=== PATIENT | female | born 1995 | race Caucasian/White ===

== ENCOUNTER 2017-09-05 19:31 | Emergency (ER) | payer MEDICAID, SELFPAY ==
[2017-09-05 19:34] VITALS: BP 116/58; PULSE 64; RESP 18; TEMP 36.9; O2SAT 100; BMI 21.0
--- NOTE | 2017-09-05 19:48 | CT_ITS ---
CT head/brain wo con HISTORY: Headache, seizure, contusion of the head/abrasion following injury after seizure ITS.REASON: seizure/fall ORDERING PHYSICIAN: Oliver Retana MD PATIENT AGE: 22 years COMPARISON: None TECHNIQUE: Axial images obtained without contrast. Brain and bone windows reviewed. FINDINGS: No midline shift, mass effect, intracranial hemorrhage, hydrocephalus, or extra-axial fluid collection is evident. The calvarium has an unremarkable appearance. No mastoid effusion. No sinus air-fluid levels.. IMPRESSION: Negative CT head without contrast. No acute finding.
[2017-09-05 20:04] LABS: Urine Pregnancy, HCG Qual. Negative (Negative)
[2017-09-05 20:18] LABS: Basophils # 0.1 K/mm3 (0-0.2); Basophils % 0.5 % (0.1-2.0); Eosinophils # 0.1 K/mm3 (0.0-0.4); Eosinophils % 1.2 % (0.1-12.0); Hematocrit 44.7 % (37.0-47.0); Hemoglobin 14.2 g/dL (12.2-16.2); Lymphocytes # 2.8 K/mm3 (0.7-4.5); Lymphocytes % 29.2 K/mm3 (10-50); Mean Corpuscular HGB Conc 31.8 g/dL (31.8-35.4); Mean Corpuscular Volume 81.6 fl (81-99); Mean Platelet Volume 7.1 fl (7.4-10.4); Monocytes # 0.5 K/mm3 (0.1-1.0); Platelet Count 276 K/mm3 (142-424); Red Blood Count 5.48 M/mm3 (4.20-5.40); Red Cell Distribution Width 14.5 % (11.5-17.5); White Blood Count 9.4 K/mm3 (4.5-13.0)
[2017-09-05 20:30] LABS: Alanine Aminotransferase 20 U/L (12-78); Albumin Level 4.3 gm/dL (3.4-5.0); Albumin/Globulin Ratio 1.3 (1.1-1.8); Alkaline Phosphatase 53 U/L (46-116); Anion Gap 13.5 mEq/L (5-15); Aspartate Amino Transferase 16 U/L (15-37); Bilirubin,Total 0.9 mg/dL (0.2-1.0); Blood Urea Nitrogen 10 mg/dL (7-18); Calcium 9.2 mg/dL (8.5-10.1); Carbon Dioxide 27 mmol/L (21.0-32.0); Chloride 105 mmol/L (98-107); Creatinine Clearance Estimated 125 mL/min (0-300); Creatinine,Serum 0.59 mg/dL (0.55-1.02); Estimated Glomerular Filt Rate 130 ml/min (>60); GFR (African American) 157 ML/MIN (>60); Globulin 3.2 gm/dl (1.3-3.2); Glucose 89 mg/dL (74-106); Potassium 3.5 mmoL/L (3.5-5.1); Sodium 142 mmol/L (136-145); Total Protein,Serum 7.5 gm/dL (6.4-8.2)
--- NOTE | 2017-09-05 21:08 | HMH.EDHA ---
ED Disposition Clinical Impression: Headache Qualifiers: Headache type: unspecified Headache chronicity pattern: acute headache Intractability: not intractable Qualified Code(s): R51 - Headache Disposition: Home, Self-Care Condition on Discharge: Good Instructions: DI for Headache Additional Instructions: see Referrals: Provider,Referral, [Primary Care Provider] - - Critical Care Critical Care Time: No Attestation: On 09/05/17, the high probability of a clinically significant, sudden or life threatening deterioration of the following system(s) required my full and direct attention, intervention and personal management. The time I documented below is in addition to time spent performing reported procedures but includes the following listed in this critical care notation. Medical Decision Making - Medical Records Medical records reviewed: Yes: I reviewed the patient's medical records. Vital Signs: 09/05/17 19:34 Temperature 98.5 F Temperature Source Temporal Artery Scan Pulse Rate [Right Radial] 64 Respiratory Rate 18 Blood Pressure [Right Arm] 116/58 Blood Pressure Mean [Right Arm] 77 02 Sat by Pulse Oximetry 100 Oxygen Delivery Method Room Air - Lab Data Lab results reviewed: Yes: I reviewed the patient's lab results. Lab Results 09/05/17 20:00: Urine HCG, Qual Negative 09/05/17 20:10: WBC 9.4, RBC 5.48 H, Hgb 14.2, Hct 44.7, MCV 81.6, MCH 26.0 L, MCHC 31.8, RDW 14.5, Plt Count 276, MPV 7.1 L, Neut % (Auto) 64.0, Lymph % (Auto) 29.2, [place] % (Auto) 5.0, Eos % (Auto) 1.2, Baso % (Auto) 0.5, Neut # (Auto) 6.0, Lymph # (Auto) 2.8, [place] # (Auto) 0.5, Eos # (Auto) 0.1, Baso # (Auto) 0.1 09/05/17 20:10: Sodium 142, Potassium 3.5, Chloride 105, Carbon Dioxide 27, Anion Gap 13.5, BUN 10, Creatinine 0.59, Estimated Creat Clear 125, Estimated GFR 130, Est GFR ( Amer) 157, Glucose 89, Calcium 9.2, Total Bilirubin 0.9, AST 16, ALT 20, Alkaline Phosphatase 53, Total Protein 7.5, Albumin 4.3, Globulin 3.2, Albumin/Globulin Ratio 1.3 Result diagrams: 09/05/17 20:10 09/05/17 20:10 Orders (Tests/Meds): ORDERS Category Date Time Status CT head/brain wo con Stat Cat Scan 09/05/17 19:48 Taken UA [Urinalysis and Microscopic] Stat Lab 09/05/17 19:56 Ordered - CT Data CT Scan: Head Time Received: 21:[address] Reviewed: Yes: I have viewed the radiologist's interpretation Preliminary Findings: Normal/NAD - Adeel Inquiry Pt receiving controlled substance: No Headache HPI - General Chief Complaint: Seizure Stated Complaint: seizure Time Seen by Provider: 09/05/17 21:08 Mode of Arrival: EMS Source of Information: Patient, Significant Other, EMS, Medical Record Limitations: No Limitations - History of Present Illness HPI Narrative: pt with daily roman over the last 2 months with no aura or neuro sx and no hx of sz - she had roman tonight and was lightheaded and had what sds like episode of vasovagaL MD Complaint: headache Onset (ago): hour(s) Onset description: now resolved Location: diffuse Severity: similar to previous episodes Quality: intermittent, similar to previous headaches Relieving factors: nothing Exacerbating factors: none Context: occurred at rest - Related Data Home Medications Medication Instructions Recorded Confirmed No Known Home Medications [No 09/05/17 09/05/17 Known Home Medications] Allergies Allergy/AdvReac Type Severity Reaction Status Date / Time No Known Allergies Allergy Verified 09/05/17 19:46 [facility] History I have reviewed the patient's past medical history: Yes Laterality Cases: Bilateral: Tonsillectomy - *Social History Smoking Status: Current every day smoker Tobacco Type: cigarettes Alcohol Intake: current Alcohol Intake Frequency:: a few times a month - Psychiatric History Expresses thoughts of harming self/others: None Suicide Plan Description: No Plan ROS Obtained: Yes All systems reviewed & no maury
--- NOTE | 2017-09-05 21:11 | ED_ITS ---
ED Disposition Clinical Impression: Headache Qualifiers: Headache type: unspecified Headache chronicity pattern: acute headache Intractability: not intractable Qualified Code(s): R51 - Headache Disposition: Home, Self-Care Condition on Discharge: Good Instructions: DI for Headache Additional Instructions: see Referrals: Provider,Referral, [Primary Care Provider] - - Critical Care Critical Care Time: No Attestation: On 09/05/17, the high probability of a clinically significant, sudden or life threatening deterioration of the following system(s) required my full and direct attention, intervention and personal management. The time I documented below is in addition to time spent performing reported procedures but includes the following listed in this critical care notation. Medical Decision Making - Medical Records Medical records reviewed: Yes: I reviewed the patient's medical records. Vital Signs: 09/05/17 19:34 Temperature 98.5 F Temperature Source Temporal Artery Scan Pulse Rate [Right Radial] 64 Respiratory Rate 18 Blood Pressure [Right Arm] 116/58 Blood Pressure Mean [Right Arm] 77 02 Sat by Pulse Oximetry 100 Oxygen Delivery Method Room Air - Lab Data Lab results reviewed: Yes: I reviewed the patient's lab results. Lab Results 09/05/17 20:00: Urine HCG, Qual Negative 09/05/17 20:10: WBC 9.4, RBC 5.48 H, Hgb 14.2, Hct 44.7, MCV 81.6, MCH 26.0 L, MCHC 31.8, RDW 14.5, Plt Count 276, MPV 7.1 L, Neut % (Auto) 64.0, Lymph % (Auto ) 29.2, [place] % (Auto) 5.0, Eos % (Auto) 1.2, Baso % (Auto) 0.5, Neut # (Auto) 6.0, Lymph # (Auto) 2.8, [place] # (Auto) 0.5, Eos # (Auto) 0.1, Baso # (Auto) 0.1 09/05/17 20:10: Sodium 142, Potassium 3.5, Chloride 105, Carbon Dioxide 27, Anion Gap 13.5, BUN 10, Creatinine 0.59, Estimated Creat Clear 125, Estimated GFR 130, Est GFR ( Amer) 157, Glucose 89, Calcium 9.2, Total Bilirubin 0.9, AST 16, ALT 20, Alkaline Phosphatase 53, Total Protein 7.5, Albumin 4.3, Globulin 3.2, Albumin/Globulin Ratio 1.3 Result diagrams: 09/05/17 20:10 09/05/17 20:10 Orders (Tests/Meds): ORDERS Category Date Time Status CT head/brain wo con Stat Cat Scan 09/05/17 19:48 Taken UA [Urinalysis and Microscopic] Stat Lab 09/05/17 19:56 Ordered - CT Data CT Scan: Head Time Received: 21:[address] Reviewed: Yes: I have viewed the radiologist's interpretation Preliminary Findings: Normal/NAD - Adeel Inquiry Pt receiving controlled substance: No Headache HPI - General Chief Complaint: Seizure Stated Complaint: seizure Time Seen by Provider: 09/05/17 21:08 Mode of Arrival: EMS Source of Information: Patient, Significant Other, EMS, Medical Record Limitations: No Limitations - History of Present Illness HPI Narrative: pt with daily roman over the last 2 months with no aura or neuro sx and no hx of sz - she had roman tonight and was lightheaded and had what sds like episode of vasovagaL MD Complaint: headache Onset (ago): hour(s) Onset description: now resolved Location: diffuse Severity: similar to previous episodes Quality: intermittent, similar to previous headaches Relieving factors: nothing Exacerbating factors: none Context: occurred at rest - Related Data Home Medications Medication Instructions Recorded Confirmed No Known Home Medications [No 09/05/1709/05
[2017-09-05 21:28] VITALS: BP 116/72; PULSE 70; RESP 18; TEMP 36.9; O2SAT 100
[2017-09-05 23:19] LABS: Microscopic, Urine URINE MICROSCOPIC (MICROSCOPIC)
[2017-09-05 23:29] LABS: Appearance,Urine SL CLOUDY (Clear); Bilirubin,Urine Negative (Negative); Blood, Urine Negative (Negative); Color,Urine YELLOW (Yellow); Glucose,Urine (UA) Negative (Negative); Ketones,Urine 1+ (Negative); Leukocyte Esterase,Urine Negative (Negative); Nitrate,Urine Negative (Negative); PH,Urine 8.5 (5.0-8.5); Protein,Urine Negative (Negative); Specific Gravity, Urine 1.015 (1.005-1.030)
[2017-09-05 23:48] LABS: Amorphous Sediment,Urine 2+ /lpf; Bacteria,Urine 4+ /lpf; RBC,Urine Occasional #/hpf (0-3)
== END 2017-09-05 21:28 | disposition home or self-care (01) ==
PROVIDERS: Emergency Medicine; Emergency Provider Emergency Medicine
DX: R51 Headache (principal); R56.9 Unspecified convulsions
CPT/HCPCS: 70450; 80053; 81001; 81025; 85025; 87086; 87088; 87186; 99281

== ENCOUNTER 2017-10-28 14:20 | Emergency (ER) | payer MEDICAID, SELFPAY ==
[2017-10-28 14:33] VITALS: BP 111/68; PULSE 75; RESP 18; TEMP 37.6; O2SAT 98; BMI 21.9
--- NOTE | 2017-10-28 14:40 | HMH.EDUTC ---
[facility] [place] [facility] [place] Clinical Impression: UTI (urinary tract infection) Qualifiers: Urinary tract infection type: acute cystitis Hematuria presence: without hematuria Qualified Code(s): N30.00 - Acute cystitis without hematuria Disposition: Home, Self-Care Condition on Discharge: Good Instructions: DI for Urinary Tract Infection (UTI) Prescriptions: Ciprofloxacin HCl [Ciprofloxacin 500mg Tab] 500 mg PO BID 5 Days #10 tab Referrals: Provider,Jerome, [Primary Care Provider] - Lauryn Laboy MD [[place] Provider] - Andrews Mcintosh MD [Staff Physician] - Time of Disposition: 14:52 Medical Decision Making - Adeel Inquiry Pt receiving controlled substance: No Vital Signs: 10/28/17 14:33 Temperature 99.6 F Temperature Source Oral Pulse Rate [Right Radial] 75 Respiratory Rate 18 Blood Pressure [Right Arm] 111/68 Blood Pressure Mean [Right Arm] 82 02 Sat by Pulse Oximetry 98 Oxygen Delivery Method Room Air - Lab Data Lab results reviewed: Yes: I reviewed the patient's lab results. [facility] [place] [facility] [place]PI - General Stated complaint: pelvic pain Time Seen by Provider: 10/28/17 14:41 Mode of Arrival: Family Vehicle Source of Information: Patient Limitations: No Limitations Description of Symptoms (Recalled from Triage Doc. by RN): PT C/O PELVIC PAIN FOR A MONTH THAT COMES IN SPURTS. HEENT Symptoms (Recalled from RN notes): No Resp Symptoms (Recalled from RN notes): No Skin Symptoms (Recalled from RN notes): No MS Symptoms (Recalled from RN notes): No Functional Status (Recalled from RN notes): NA - History of Present Illness Provider Complaint: Pelvic pain X 1 month. No hematuria. No discharge. Some low back pain and dysuria. History of UTIs. Onset (ago): month(s) (1) Location: genitals Radiation: non-radiation Quality: burning, aching Treatments prior to arrival: none - Related Data Previous Rx's Medication Instructions Recorded Ciprofloxacin HCl [Ciprofloxacin 500 mg PO BID 5 Days #10 tab 10/28/17 500mg Tab] Allergies Allergy/AdvReac Type Severity Reaction Status Date / Time No Known Allergies Allergy Verified 09/05/17 19:46 - Worker's Comp Is this a Worker's Comp case?: No [facility] History I have reviewed the patient's past medical history: Yes Medical History: Denies:: Cancer, Diabetes Mellitus Type 1, Diabetes Mellitus Type 2, MRSA Laterality Cases: Bilateral: Tonsillectomy Amputation: No Fractures: No - Social History Smoking Status: Current every day smoker Tobacco Type: cigarettes Alcohol Intake: never Alcohol Intake Frequency:: a few times a month - Psychiatric History Expresses thoughts of harming self/others: None Suicide Plan Description: No Plan ROS Obtained: Yes All systems reviewed & no additional complaints - Genitourinary Female Genitourinary: Reports dysuria, Reports pelvic pain Physical Exam - General General appearance: alert, in no apparent distress - Head Head exam: atraumatic, normocephalic, normal inspection - Eye Eye exam: Present: normal appearance, PERRL, EOMI - ENT ENT exam: Present: normal exam, normal oropharynx, mucous membranes moist, TM's normal bilaterally, normal external ear exam - Neck Neck exam: Present: normal inspection, full ROM, trachea midline. Absent: meningismus, lymphadenopathy - Chest Chest inspection: Present: normal inspection, symmetric chest wall rise. Absent: tenderness - Respiratory Respiratory exam: Present: normal lung sounds bilaterally. Absent: respiratory distress - Cardiovascular Cardiovascular exam: Present: regular rate, normal rhythm. Absent: JVD - Abdominal Exam Abdominal exam: Present: soft, normal bowel sounds. Absent: distention, tenderness, guarding - Extremities Exam Extremities exam: Present: normal inspection, full ROM, normal capillary refill. Absent: calf tenderness - Back Exam Back exam: Present: normal inspection. Absent: tenderness - Neurological Exam Neurological exam: P
[2017-10-28 14:44] LABS: Apearance,Urine Cloudy (Clear); Color,Urine Yellow (Yellow)
[2017-10-28 14:45] LABS: Bilirubin,Urine Negative (Negative); Blood, Urine Negative (Negative); Glucose,Urine (UA) Negative (Negative); Ketones,Urine TRACE (Negative); Protein,Urine Negative (Negative); Specific Gravity, Urine 1.025 (1.005-1.030); UTC Leukocyte Esterase,Urine 1+ (Negative); UTC Nitrate,Urine Positive (Negative); UTC Pregnancy Test, Urine Negative (Negative); Urobilinogen,Urine 0.2 EU/dl (0.2)
--- NOTE | 2017-10-28 14:49 | ED_ITS ---
[facility] – [place] Disposition Clinical Impression: UTI (urinary tract infection) Qualifiers: Urinary tract infection type: acute cystitis Hematuria presence: without hematuria Qualified Code(s): N30.00 - Acute cystitis without hematuria Disposition: Home, Self-Care Condition on Discharge: Good Instructions: DI for Urinary Tract Infection (UTI) Prescriptions: Ciprofloxacin HCl [Ciprofloxacin 500mg Tab] 500 mg PO BID 5 Days #10 tab Referrals: Provider,eJrome, [Primary Care Provider] - Lauryn Laboy MD [[place] Provider] - Andrews Mcintosh MD [Staff Physician] - Time of Disposition: 14:52 Medical Decision Making - Adeel Inquiry Pt receiving controlled substance: No Vital Signs: 10/28/17 14:33 Temperature 99.6 F Temperature Source Oral Pulse Rate [Right Radial] 75 Respiratory Rate 18 Blood Pressure [Right Arm] 111/68 Blood Pressure Mean [Right Arm] 82 02 Sat by Pulse Oximetry 98 Oxygen Delivery Method Room Air - Lab Data Lab results reviewed: Yes: I reviewed the patient's lab results. [facility] [place] HPI - General Stated complaint: pelvic pain Time Seen by Provider: 10/28/17 14:41 Mode of Arrival: Family Vehicle Source of Information: Patient Limitations: No Limitations Description of Symptoms (Recalled from Triage Doc. by RN): PT C/O PELVIC PAIN FOR A MONTH THAT COMES IN SPURTS. HEENT Symptoms (Recalled from RN notes): No Resp Symptoms (Recalled from RN notes): No Skin Symptoms (Recalled from RN notes): No MS Symptoms (Recalled from RN notes): No Functional Status (Recalled from RN notes): NA - History of Present Illness Provider Complaint: Pelvic pain X 1 month. No hematuria. No discharge. Some low back pain and dysuria. History of UTIs. Onset (ago): month(s) (1) Location: genitals Radiation: non-radiation Quality: burning, aching Treatments prior to arrival: none - Related Data Previous Rx's Medication Instructions Recorded Ciprofloxacin HCl [Ciprofloxacin 500 mg PO BID 5 Days #10 tab 10/28/17 500mg Tab] Allergies Allergy/AdvReac Type Severity Reaction Status Date / Time No Known Allergies Allergy Verified 09/05/17 19:46 - Worker's Comp Is this a Worker's Comp case?: No [facility] History I have reviewed the patient's past medical history: Yes Medical History: Denies:: Cancer, Diabetes Mellitus Type 1, Diabetes Mellitus Type 2, MRSA Laterality Cases: Bilateral: Tonsillectomy Amputation: No Fractures: No - Social History Smoking Status: Current every day smoker Tobacco Type: cigarettes Alcohol Intake: never Alcohol Intake Frequency:: a few times a month - Psychiatric History Expresses thoughts of harming self/others: None Suicide Plan Description: No Plan ROS Obtained: Yes All systems reviewed & no additional complaints - Genitourinary Female Genitourinary: Reports dysuria, Reports pelvic pain Physical Exam - General General appearance: alert, in no apparent distress - Head Head exam: atraumatic, normocephalic, normal inspection - Eye Eye exam: Present: normal appearance, PERRL, EOMI - ENT ENT exam: Present: normal exam, normal oropharynx, mucous membranes moist, TM's normal bilaterally, normal external ear exam - Neck Neck exam: Present: normal inspection, full ROM, trachea midline. Absent: meningismus, lymphadenopathy - Chest Chest in
[2017-10-28 14:55] VITALS: BP 115/72; PULSE 79; RESP 16; TEMP 37.4; O2SAT 99
== END 2017-10-28 14:56 | disposition home or self-care (01) ==
PROVIDERS: Emergency Provider Physician Assistant
DX: N30.00 Acute cystitis without hematuria (principal); F17.210 Nicotine dependence, cigarettes, uncomplicated
CPT/HCPCS: 81003; 81025; 87086; 87088; 87186; 99201

== ENCOUNTER → 2017-12-19 16:19 | Outpatient (CLI) | payer MEDICAID, SELFPAY | PROVIDERS: Visit Provider Obstetrics & Gynecology | DX: O20.0 Threatened abortion (principal) | CPT/HCPCS: 36415; 84702 ==

== ENCOUNTER 2020-05-28 10:22 | Emergency (ER) | payer MEDICAID, SELFPAY ==
[2020-05-28 10:24] VITALS: BP 122/74; PULSE 90; RESP 17; TEMP 37.1; O2SAT 96; BMI 22.8
--- NOTE | 2020-05-28 10:41 | PC.NURSE ---
Denies being able to urinate or have a BM at this time
--- NOTE | 2020-05-28 10:58 | HMH.EDGENADL ---
ED Disposition Clinical Impression: Nausea vomiting and diarrhea, Blood in stool Disposition: Home, Self-Care Condition on Discharge: Good Instructions: Diarrhea, DI for Vomiting -- Adult Additional Instructions: Follow-up with your primary care provider within 2 to 3 days for reevaluation. Return to the emergency department for any acute new concerns or worsening symptoms. - Critical Care Critical Care Time: No Attestation: On 05/28/20, the high probability of a clinically significant, sudden or life threatening deterioration of the following system(s) required my full and direct attention, intervention and personal management. The time I documented below is in addition to time spent performing reported procedures but includes the following listed in this critical care notation. Medical Decision Making - Medical Records Medical records reviewed: Yes: I reviewed the patient's medical records. - Adeel Inquiry Pt receiving controlled substance: No Vital Signs: 05/28/20 10:24 Temperature 98.8 F Temperature Source Oral Pulse Rate [Left Radial] 90 Respiratory Rate 17 Blood Pressure [Right Arm] 122/74 Blood Pressure Mean [Right Arm] 90 Blood Pressure Source [Right Arm] Automatic Cuff Blood Pressure Position [Right Arm] Sitting 02 Sat by Pulse Oximetry 96 Oxygen Delivery Method Room Air - Lab Data Lab results reviewed: Yes: I reviewed the patient's lab results. Lab Results 05/28/20 11:00: WBC 6.7, RBC 5.53 H, Hgb 13.7, Hct 42.0, MCV 75.8 L, MCH 24.8 L, MCHC 32.8, RDW 15.1, Plt Count 291, MPV 7.2 L, Neut % (Auto) 54.5, Lymph % (Auto) 37.0, [place] % (Auto) 5.4, Eos % (Auto) 2.0, Baso % (Auto) 1.1, Neut # (Auto) 3.7, Lymph # (Auto) 2.5, [place] # (Auto) 0.4, Eos # (Auto) 0.1, Baso # (Auto) 0.1 05/28/20 11:00: Sodium 138, Potassium 4.0, Chloride 101, Carbon Dioxide 28, Anion Gap 13.0, BUN 6 L, Creatinine 0.60, Estimated Creat Clear 131, Estimated GFR 124, Est GFR ( Amer) 150, Glucose 90, Calcium 9.5, Total Bilirubin 0.6, AST 28, ALT 11 L, Alkaline Phosphatase 61, Total Protein 8.0, Albumin 4.9, Globulin 3.1, Albumin/Globulin Ratio 1.6 05/28/20 11:00: Lipase 47 05/28/20 11:40: Lactate 0.8 05/28/20 11:45: Urine Color Yellow, Urine Appearance Clear, Urine pH 8.5, Ur Specific [place] 1.020, Urine Protein Negative, Urine Glucose (UA) Negative, Urine Ketones Negative, Urine Blood Negative, Urine Nitrate Negative, Urine Bilirubin Negative, Urine Urobilinogen 0.2, Ur Leukocyte Esterase Negative, Urine RBC Occasional, Urine WBC Occasional, Ur Squamous Epith Cells 10-20, Amorphous Sediment 2+, Urine Bacteria None Result diagrams: 05/28/20 11:00 05/28/20 11:00 Orders (Tests/Meds): ORDERS Category Date Time Status Diarrhea 6-11 Panel, Cdiff PCR Stat Lab 05/28/20 10:43 Ordered Medical Decision Narrative: Over the nontender abdomen and labs that are reassuring with no significant leukocytosis, anemia, significant metabolic derangement. She only has 1 bowel movement while here, did states that there was blood in it, but neglected to get us a sample. She has not had any vomiting here. Suspect viral syndrome, but IBS/inflammatory bowel disease is a possibility. I have recommended follow-up with primary care provider within the next 2 to 3 days for reevaluation. General Adult HPI - General Chief complaint: Nausea/Vomiting/Diarrhea Stated complaint: blood in bowels, vomiting Time Seen by Provider: 05/28/20 10:58 Mode of Arrival: Ambulatory Limitations: No Limitations Description of Symptoms (Recalled from ER Triage Doc. by RN): c/o rectal bleeding for 2 days with diarrhea, abdomen pain, vomited once this and feels dizzy at times - History of Present Illness HPI narrative: This is a 25-year-old female with no significant past medical history who presents to the emergency department for bright red bloody loose stool this morning associated with one episode of vomiting. She has had crampy abdominal pain all week. No
[2020-05-28 11:05] LABS: Basophils # 0.1 K/mm3 (0-0.2); Basophils % 1.1 % (0.1-2.0); Eosinophils # 0.1 K/mm3 (0.0-0.4); Hemoglobin 13.7 g/dL (12.2-16.2); Lymphocytes # 2.5 K/mm3 (0.7-4.5); Mean Corpuscular HGB Conc 32.8 g/dL (31.8-35.4); Mean Corpuscular Hemoglobin 24.8 pg (27.0-31.2); Mean Corpuscular Volume 75.8 fl (81-99); Mean Platelet Volume 7.2 fl (7.4-10.4); Monocytes # 0.4 K/mm3 (0.1-1.0); Monocytes % 5.4 % (1.7-9.3); Neutrophils # 3.7 K/mm3 (1.8-7.8); Neutrophils % 54.5 % (37.0-80.0); Platelet Count 291 K/mm3 (142-424); Red Blood Count 5.53 M/mm3 (4.20-5.40); Red Cell Distribution Width 15.1 % (11.5-17.5); White Blood Count 6.7 K/mm3 (4.8-10.8)
[2020-05-28 11:18] LABS: Chloride 101 mmol/L (98-107); Sodium 138 mmol/L (136-145)
[2020-05-28 11:20] LABS: Alanine Aminotransferase 11 U/L (12-78); Aspartate Amino Transferase 28 U/L (14-36); Blood Urea Nitrogen 6 mg/dl (7-17); Creatinine Clearance Estimated 131 mL/min (50-200); Estimated Glomerular Filt Rate 124 ml/min (>60); GFR (African American) 150 ML/MIN (>60); Lipase 47 U/L (23-300)
[2020-05-28 11:21] LABS: Albumin Level 4.9 g/dl (3.5-5.0); Albumin/Globulin Ratio 1.6 (1.1-1.8); Alkaline Phosphatase 61 U/L (38-126); Bilirubin,Total 0.6 mg/dl (0.2-1.3); Calcium 9.5 mg/dl (8.4-10.2); Carbon Dioxide 28 mmol/L (22.0-30.0); Globulin 3.1 g/dL (1.3-3.2); Glucose 90 mg/dl (74-100)
[2020-05-28 11:49] LABS: Microscopic, Urine URINE MICROSCOPIC (MICROSCOPIC)
[2020-05-28 11:50] LABS: Appearance,Urine CLEAR (Clear); Bilirubin,Urine Negative (Negative); Blood, Urine Negative (Negative); Color,Urine YELLOW (Yellow); Glucose,Urine (UA) Negative (Negative); Ketones,Urine Negative (Negative); Leukocyte Esterase,Urine Negative (Negative); Nitrate,Urine Negative (Negative); PH,Urine 8.5 (5.0-8.5); Protein,Urine Negative (Negative); Urobilinogen,Urine 0.2 EU/dl (0.2)
[2020-05-28 11:55] LABS: Lactic Acid 0.8 mmol/L (0.7-2.1)
[2020-05-28 11:59] LABS: Amorphous Sediment,Urine 2+ /lpf; RBC,Urine Occasional #/hpf (0-3); WBC,Urine Occasional #/hpf (0-3)
[2020-05-28 12:20] VITALS: BP 138/75; PULSE 61; RESP 18; TEMP 37.1; O2SAT 98
== END 2020-05-28 12:21 | disposition home or self-care (01) ==
PROVIDERS: Emergency Provider Emergency Medicine; PCP Pediatrics
DX: R11.2 Nausea with vomiting, unspecified (principal); R19.7 Diarrhea, unspecified; F41.8 Other specified anxiety disorders
CPT/HCPCS: 80053; 81001; 83605; 83690; 85025; 99282

== ENCOUNTER 2020-07-23 11:55 | Emergency (ER) | payer MEDICAID, SELFPAY ==
[2020-07-23 12:05] VITALS: BP 142/76; PULSE 87; RESP 20; TEMP 36.6; O2SAT 99; BMI 22.8
[2020-07-23 12:20] VITALS: BP 130/78; BP 131/78; PULSE 101; PULSE 124
--- NOTE | 2020-07-23 12:37 | HMH.EDUTC ---
[facility] [place]: Orthostatic hypotension Disposition: Home, Self-Care Condition on Discharge: Good Instructions: Orthostatic Hypotension, DI for Orthostatic Hypotension Additional Instructions: Drink plenty of fluids. You need to drink at least 2 liters (2 quarts) of water per day. That's about eight 8 ounce glasses of water per day. Follow up with your regular doctor. GO TO THE ER FOR ANY WORSENING SYMPTOMS Referrals: PCP,No [Primary Care Provider] - Time of Disposition: 14:06 Medical Decision Making - Medical Records Medical records reviewed: No: I reviewed the patient's medical records. - Adeel Inquiry Pt receiving controlled substance: No Vital Signs: 07/23/20 12:05 07/23/20 12:20 07/23/20 14:08 Temperature 97.8 F 97.8 F Temperature Source Oral Pulse Rate 101 H Pulse Rate [Orthostatic Sitting Left Brachial] 101 H Pulse Rate [Orthostatic Standing Left Brachial] 124 H Pulse Rate [Right Brachial] 87 Respiratory Rate 20 20 Blood Pressure 130/78 Blood Pressure [Orthostatic Sitting Left Arm] 131/78 Blood Pressure [Orthostatic Standing Left Arm] 130/78 Blood Pressure [Right Arm] 142/76 H Blood Pressure Mean [Right Arm] 98 Blood Pressure Source [Right Arm] Automatic Cuff Blood Pressure Position [Right Arm] Sitting 02 Sat by Pulse Oximetry 99 Oxygen Delivery Method Room Air Orders (Tests/Meds): ED MEDICATIONS Discontinued Medications Generic Name Dose Route Start Last Admin Trade Name Freq PRN Reason Stop Dose Admin Sodium Chloride 1,000 mls @ 999 mls/hr 07/23/20 13:00 07/23/20 13:00 Sod Chlor 0.9% 1000ml Bag IV 07/23/20 14:00 999 mls/hr .[id number] NANCY Administration Medical Decision Narrative: Her heart rate went up some with her orthostatic vitals. In the past she has had trouble with not drinking enough fluids and getting dehydrated. 1 liter of ns was given iv. Afterwards she stated that she felt better. [facility] [place] - General Stated complaint: dizzy, rapid heart rate, nausea Time Seen by Provider: 07/23/20 12:37 Mode of Arrival: Ambulatory Source of Information: Patient Limitations: No Limitations Description of Symptoms (Recalled from Triage Doc. by RN): PATIENT C/O DIZZINESS SINCE THIS MORNING. SHE STATES EVERY TIME SHE STANDS UP SHE FEELS DIZZY AND FAINT AND FEELS LIKE HER HEARTRATE INCREASES. DENIES ANY RECENT ILLNESS OR ANY OTHER SYMPTOMS HEENT Symptoms (Recalled from RN notes): No Resp Symptoms (Recalled from RN notes): No Skin Symptoms (Recalled from RN notes): No MS Symptoms (Recalled from RN notes): No Functional Status (Recalled from RN notes): WNL - History of Present Illness Provider Complaint: She c/o dizziness since this morning. She states that when she stands up she feels like she is going to pass out. She denies any recent sickeness or feeling bad. She denies any cough or congestion. She has been dehydrated in the past and she felt like this. She denies n/v/d. - Related Data Allergies Allergy/AdvReac Type Severity Reaction Status Date / Time No Known Allergies Allergy Verified 02/01/18 16:44 - Worker's Comp Is this a Worker's Comp case?: No [facility] History - Hepatitis A Screen Drug use history?: No High risk sexual behaviors?: No History of sexually transmitted infection?: No Currently employed?: No Childcare worker?: No Do you have indoor plumbing?: Yes Do you have electricity?: Yes Attestation statement:: This patient has been screened for Hepatitis A risk factors. I have reviewed the patient's past medical history: Yes Medical History: Reports:: Anxiety, Depression, Seizures Denies:: Cancer, Diabetes Mellitus Type 1, Diabetes Mellitus Type 2, Migraine, MRSA Comment: Bipolar Laterality Cases: Bilateral: Tonsillectomy Amputation: No Fractures: No Comment: wisdom teeth - Social History Smoking Status: Never smoker Tobacco Type: cigarettes Alcohol Intake: never Alcohol Intake Fr
--- NOTE | 2020-07-23 12:44 | ECG_ITS ---
APPROVED REPORT Exam: Resting ECG HR:86 bpm ECG Measurements Heart Rate 86 AXES UT 142 P 42 QRSd 74 QRS 69 QT 386 T 50 QTc 461 Conclusion Normal sinus rhythm Normal ECG Electronically signed by : Pb Ordonez, 07/23/2020 19:13:01
[2020-07-23 14:08] VITALS: BP 130/78; PULSE 101; RESP 20; TEMP 36.6; O2SAT 99
[2020-07-23 19:13] LABS: Apearance,Urine Clear (Clear); Bilirubin,Urine Negative (Negative); Blood, Urine Negative (Negative); Color,Urine Yellow (Yellow); Glucose,Urine (UA) Negative (Negative); Ketones,Urine Negative (Negative); Protein,Urine Negative (Negative); UTC Leukocyte Esterase,Urine Negative (Negative); UTC Nitrate,Urine Negative (Negative); Urobilinogen,Urine 0.2 EU/dl (0.2)
[2020-07-25 06:12] LABS: POC Glucose,Bedside 113 (70-110)
== END 2020-07-23 14:13 | disposition home or self-care (01) ==
PROVIDERS: Emergency Provider Nurse Practitioner Family
DX: I95.1 Orthostatic hypotension (principal); F41.8 Other specified anxiety disorders
CPT/HCPCS: 81003; 82962; 93005; 96365; 99201

== ENCOUNTER 2020-08-06 18:09 | Emergency (ER) | payer MEDICAID, SELFPAY ==
[2020-08-06 18:10] VITALS: BP 111/71; PULSE 89; RESP 16; TEMP 36.6; O2SAT 98; BMI 22.8
--- NOTE | 2020-08-06 18:53 | HMH.EDUTC ---
[facility] [place] [facility] [place] Impression: Exposure to COVID-19 virus Disposition: Home, Self-Care Condition on Discharge: Good Instructions: DI for COVID-19 (Suspected or Confirmed ), Preventing the Spread of Coronavirus Discharge Instructions Additional Instructions: Drink plenty of fluids. Take tylenol for pain or fever. Return if you begin to have difficulty breathing. Follow up with your regular doctor. GO TO THE ER FOR ANY WORSENING SYMPTOMS Referrals: PCP,No [Primary Care Provider] - Time of Disposition: 18:58 Medical Decision Making - Medical Records Medical records reviewed: No: I reviewed the patient's medical records. - Adeel Inquiry Pt receiving controlled substance: No Vital Signs: 08/06/20 18:10 08/06/20 19:03 Temperature 97.8 F 97.8 F Temperature Source Oral Oral Pulse Rate 89 Pulse Rate [Right] 89 Respiratory Rate 16 16 Blood Pressure 111/71 Blood Pressure [Right Arm] 111/71 Blood Pressure Mean [Right Arm] 84 02 Sat by Pulse Oximetry 98 [facility] [place] - General Stated complaint: covid test Time Seen by Provider: 08/06/20 18:53 Description of Symptoms (Recalled from Triage Doc. by RN): pt request covid test pt has no symptoms HEENT Symptoms (Recalled from RN notes): No Resp Symptoms (Recalled from RN notes): No Skin Symptoms (Recalled from RN notes): No MS Symptoms (Recalled from RN notes): No Functional Status (Recalled from RN notes): wnl - History of Present Illness Provider Complaint: She states that 3 days ago she was exposed to covid-19 by her uncle having it and coming to visit her. - Related Data Allergies Allergy/AdvReac Type Severity Reaction Status Date / Time No Known Allergies Allergy Verified 08/06/20 18:35 - Worker's Comp Is this a Worker's Comp case?: No Is this an [facility] Worker's Comp?: No Is this a [place] Worker's Comp?: No [facility] History - Hepatitis A Screen Drug use history?: No High risk sexual behaviors?: No History of sexually transmitted infection?: No Currently employed?: No Childcare worker?: No Do you have indoor plumbing?: Yes Do you have electricity?: Yes Attestation statement:: This patient has been screened for Hepatitis A risk factors. I have reviewed the patient's past medical history: Yes Medical History: Reports:: Anxiety, Depression, Seizures Denies:: Cancer, Diabetes Mellitus Type 1, Diabetes Mellitus Type 2, Migraine, MRSA Comment: Bipolar Laterality Cases: Bilateral: Tonsillectomy Amputation: No Fractures: No Comment: wisdom teeth - Social History Smoking Status: Never smoker Tobacco Type: cigarettes Alcohol Intake: never Alcohol Intake Frequency:: a few times a month Substance Use Type: marijuana Occupational Status: other - Psychiatric History Pschychiatric History:: Reports:: Anxiety, Bipolar Disorder, Depression Family Hx:: Cancer, Hypertension, Hyperlipidemia, Asthma ROS Obtained: Yes All systems reviewed & no additional complaints - Constitutional Constitutional: Reports system reviewed and no additional complaints, except as docu - Eyes Eyes: Reports system reviewed and no additional complaints, except as docu - ENT Ears, Nose, Mouth, and Throat: Reports system reviewed and no additional complaints, except as docu - Cardiovascular Cardiovascular: Reports system reviewed and no additional complaints, except as docu - Respiratory Respiratory: Reports system reviewed and no additional complaints, except as docu - Gastrointestinal Gastrointestingal: Reports: system reviewed and no additional complaints, except as docu Physical Exam - General General appearance: alert, in no apparent distress - Head Head exam: atraumatic, normocephalic, normal inspection - Eye Eye exam: Present: normal appearance, PERRL, EOMI - ENT ENT exam: Present: normal exam, normal oropharynx, mucous membranes moist, TM's normal bilaterally, normal external ear exam - Neck Neck exam: Present: normal
[2020-08-06 19:03] VITALS: BP 111/71; PULSE 89; RESP 16; TEMP 36.6; O2SAT 98
== END 2020-08-06 19:05 | disposition home or self-care (01) ==
PROVIDERS: Emergency Provider Nurse Practitioner Family
DX: Z20.822 Contact with and (suspected) exposure to COVID-19 (principal); F41.8 Other specified anxiety disorders
CPT/HCPCS: 99202; G0463; U0003

== ENCOUNTER 2020-08-11 11:23 | Emergency (ER) | payer MEDICAID, SELFPAY ==
[2020-08-11 11:24] VITALS: BP 114/57; PULSE 82; RESP 14; TEMP 36.6; O2SAT 100; BMI 22.8
--- NOTE | 2020-08-11 12:04 | HMH.EDUTC ---
[facility] [place] Disposition Clinical Impression: Exposure to COVID-19 virus, Viral syndrome Disposition: Home, Self-Care Condition on Discharge: Good Instructions: DI for COVID-19 (Suspected or Confirmed ), Preventing the Spread of Coronavirus Discharge Instructions Additional Instructions: Drink plenty of fluids. Take tylenol for pain or fever. Return if you begin to have difficulty breathing. Follow up with your regular doctor. GO TO THE ER FOR ANY WORSENING SYMPTOMS Prescriptions: Ondansetron [Zofran 4mg ODT] 4 mg PO Q8HP PRN #12 tab.rapdis PRN Reason: Nausea Transmission Status: Received by [id number] Referrals: PCP,No [Primary Care Provider] - Time of Disposition: 12:08 Medical Decision Making - Medical Records Medical records reviewed: No: I reviewed the patient's medical records. - Adeel Inquiry Pt receiving controlled substance: No Vital Signs: 08/11/20 11:24 08/11/20 12:16 Temperature 97.8 F 97.8 F Temperature Source Oral Oral Pulse Rate 82 Pulse Rate [Right] 82 Respiratory Rate 14 14 Blood Pressure 114/57 L Blood Pressure [Right Arm] 114/57 L Blood Pressure Mean [Right Arm] 76 02 Sat by Pulse Oximetry 100 Orders (Tests/Meds): ORDERS Category Date Time Status Covid-19 Nasal PCR Sendout P&C Routine Lab 08/11/20 11:50 Received Covid-19 Nasal PCR Sendout P&C Stat Lab 08/11/20 11:54 Ordered [facility] [place] HPI - General Stated complaint: covid exposure and symtoms Time Seen by Provider: 08/11/20 12:04 Mode of Arrival: Ambulatory Description of Symptoms (Recalled from Triage Doc. by RN): pt request covid test pt has no symptoms HEENT Symptoms (Recalled from RN notes): No Resp Symptoms (Recalled from RN notes): No Skin Symptoms (Recalled from RN notes): No MS Symptoms (Recalled from RN notes): No Functional Status (Recalled from RN notes): wnl - History of Present Illness Provider Complaint: She is back for a repeat covid test. Her son currently has covid. She states that she has felt bad for several days. She had nausea all day yesterday. - Related Data Previous Rx's Medication Instructions Recorded Ondansetron [Zofran 4mg ODT] 4 mg PO Q8HP PRN #12 tab.rapdis 08/11/20 Allergies Allergy/AdvReac Type Severity Reaction Status Date / Time No Known Allergies Allergy Verified 08/11/20 12:03 - Worker's Comp Is this a Worker's Comp case?: No Is this an [facility] Worker's Comp?: No Is this a [place] Worker's Comp?: No [facility] History - Hepatitis A Screen Drug use history?: No High risk sexual behaviors?: No History of sexually transmitted infection?: No Currently employed?: No Childcare worker?: No Do you have indoor plumbing?: Yes Do you have electricity?: Yes Attestation statement:: This patient has been screened for Hepatitis A risk factors. I have reviewed the patient's past medical history: Yes Medical History: Reports:: Anxiety, Depression, Seizures Denies:: Cancer, Diabetes Mellitus Type 1, Diabetes Mellitus Type 2, Migraine, MRSA Comment: Bipolar Laterality Cases: Bilateral: Tonsillectomy Amputation: No Fractures: No Comment: wisdom teeth - Social History Smoking Status: Never smoker Tobacco Type: cigarettes Alcohol Intake: never Alcohol Intake Frequency:: a few times a month Substance Use Type: marijuana Occupational Status: other - Psychiatric History Pschychiatric History:: Reports:: Anxiety, Bipolar Disorder, Depression Family Hx:: Cancer, Hypertension, Hyperlipidemia, Asthma ROS Obtained: Yes All systems reviewed & no additional complaints - Constitutional Constitutional: Reports system reviewed and no additional complaints, except as docu - Eyes Eyes: Reports system reviewed and no additional complaints, except as docu - ENT Ears, Nose, Mouth, and Throat: Reports system reviewed and no additional complaints, except as docu - Cardiovascular Cardiovascular: Reports system reviewed and no additional complaints, e
[2020-08-11 12:16] VITALS: BP 114/57; PULSE 82; RESP 14; TEMP 36.6; O2SAT 100
[2020-08-12 09:19] LABS: Covid-19 Nasal PCR Sendout P&C NEGATIVE
== END 2020-08-11 12:21 | disposition home or self-care (01) ==
PROVIDERS: Emergency Provider Nurse Practitioner Family
DX: Z20.822 Contact with and (suspected) exposure to COVID-19 (principal); B34.9 Viral infection, unspecified; F41.8 Other specified anxiety disorders; R56.9 Unspecified convulsions
CPT/HCPCS: 99202; G0463; U0004

== ENCOUNTER 2020-08-11 23:25 | Emergency (ER) | payer MEDICAID, SELFPAY ==
[2020-08-11 23:27] VITALS: BP 121/73; PULSE 101; RESP 17; TEMP 36.8; O2SAT 98; BMI 20.3
--- NOTE | 2020-08-11 23:45 | ECG_ITS ---
APPROVED REPORT Exam: Resting ECG HR:107 bpm ECG Measurements Heart Rate 107 AXES CA 136 P 45 QRSd 78 QRS 62 QT 360 T 37 QTc 480 Conclusion Sinus tachycardia Nonspecific ST abnormality Abnormal ECG Electronically signed by : Pb Ordonez, 08/12/2020 06:24:47
[2020-08-11 23:52] LABS: Basophils # 0.1 K/mm3 (0-0.2); Basophils % 0.9 % (0.1-2.0); Eosinophils # 0.3 K/mm3 (0.0-0.4); Eosinophils % 2.3 % (0.1-12.0); Hematocrit 39.4 % (37.0-47.0); Hemoglobin 12.4 g/dL (12.2-16.2); Lymphocytes # 4.2 K/mm3 (0.7-4.5); Lymphocytes % 38.5 % (10-50); Mean Corpuscular HGB Conc 31.5 g/dL (31.8-35.4); Mean Corpuscular Hemoglobin 24.5 pg (27.0-31.2); Mean Corpuscular Volume 77.6 fl (81-99); Monocytes # 0.8 K/mm3 (0.1-1.0); Monocytes % 7.1 % (1.7-9.3); Neutrophils # 5.6 K/mm3 (1.8-7.8); Neutrophils % 51.2 % (37.0-80.0); Platelet Count 278 K/mm3 (142-424); Red Blood Count 5.08 M/mm3 (4.20-5.40); Red Cell Distribution Width 14.7 % (11.5-17.5)
[2020-08-11 23:56] LABS: Chloride 103 mmol/L (98-107); Potassium 3.7 mmoL/L (3.5-5.1); Sodium 138 mmol/L (136-145)
[2020-08-11 23:59] LABS: Anion Gap 13.7 mEq/L (5-15); Blood Urea Nitrogen 17 mg/dl (7-17); Calcium 9.8 mg/dl (8.4-10.2); Carbon Dioxide 25 mmol/L (22.0-30.0); Creatinine Clearance Estimated 120 mL/min (50-200); Estimated Glomerular Filt Rate 124 ml/min (>60); GFR (African American) 150 ML/MIN (>60); Glucose 101 mg/dl (74-100)
[2020-08-12] LABS: Microscopic, Urine URINE MICROSCOPIC (MICROSCOPIC)
--- NOTE | 2020-08-12 00:09 | XR_ITS ---
PROCEDURE: XR CHEST 2V CLINICAL HISTORY: cp Chest pain COMPARISON: No exams were available for comparison FINDINGS: The cardiomediastinal silhouette and pulmonary vascularity are within normal limits. The lungs are clear without infiltrates, suspicious nodules, or pleural effusions. No acute bony abnormalities. IMPRESSION: No acute findings. Dictated by: Rogelio Moncada MD 08/12/2020 05:33 Rogelio Moncada MD in [place] 08/12/2020 05:33
[2020-08-12 00:17] LABS: T4 (Thyroxine) 8.5 ug/dl (5.53-11.0)
[2020-08-12 00:19] LABS: Appearance,Urine CLEAR (Clear); Bilirubin,Urine Negative (Negative); Blood, Urine Negative (Negative); Color,Urine YELLOW (Yellow); Glucose,Urine (UA) Negative (Negative); Ketones,Urine Negative (Negative); Leukocyte Esterase,Urine Negative (Negative); Nitrate,Urine Negative (Negative); PH,Urine 6.5 (5.0-8.5); Protein,Urine Negative (Negative); Urobilinogen,Urine 0.2 EU/dl (0.2)
[2020-08-12 00:22] LABS: Urine Pregnancy, HCG Qual. Negative (Negative)
[2020-08-12 00:23] LABS: Troponin I < 0.01 ng/ml (0.00-0.034)
[2020-08-12 00:30] LABS: Thyroid Stimulating Hormone 2.77 uIU/mL (0.465-4.68)
[2020-08-12 00:32] LABS: Amphetamine/Metha Screen,Urine Negative ng/ml (<1000)
[2020-08-12 00:33] LABS: Barbiturates Screen,Urine Negative ng/ml (<200); Benzodiazepines Screen,Urine Negative ng/ml (<200)
[2020-08-12 00:34] LABS: Cannabinoid Screen,Urine Negative ng/ml (<50)
[2020-08-12 00:35] LABS: Cocaine Screen,Urine Negative ng/ml (<300); Methadone Screen,Urine Negative ng/ml (<300)
[2020-08-12 00:36] LABS: Opiate Screen,Urine Negative ng/ml (<300); Phencyclidine Screen,Urine Negative ng/ml (<25)
[2020-08-12 00:38] LABS: Coronavirus 19 IgG Antibody Negative (Negative); Coronavirus 19 IgM Antibody Negative (Negative)
[2020-08-12 00:45] LABS: Bacteria,Urine Trace /lpf; WBC,Urine Occasional #/hpf (0-3)
--- NOTE | 2020-08-12 00:46 | HMH.EDCP ---
ED Disposition Clinical Impression: Atypical chest pain Disposition: Home, Self-Care Condition on Discharge: Good Instructions: DI for Atypical Chest Pain Additional Instructions: see pcp for follow up Referrals: PCP,No [Primary Care Provider] - - Critical Care Critical Care Time: No Attestation: On 08/11/20, the high probability of a clinically significant, sudden or life threatening deterioration of the following system(s) required my full and direct attention, intervention and personal management. The time I documented below is in addition to time spent performing reported procedures but includes the following listed in this critical care notation. Medical Decision Making - Medical Records Medical records reviewed: Yes: I reviewed the patient's medical records. - Adeel Inquiry Pt receiving controlled substance: No Vital Signs: 08/11/20 23:27 Temperature 98.2 F Temperature Source Oral Pulse Rate [Right Brachial] 101 H Respiratory Rate 17 Blood Pressure [Right Arm] 121/73 Blood Pressure Mean [Right Arm] 89 Blood Pressure Source [Right Arm] Automatic Cuff Blood Pressure Position [Right Arm] Sitting 02 Sat by Pulse Oximetry 98 Oxygen Delivery Method Room Air - Lab Data Lab results reviewed: Yes: I reviewed the patient's lab results. Lab Results 08/11/20 23:42: WBC 11.0 H, RBC 5.08, Hgb 12.4, Hct 39.4, MCV 77.6 L, MCH 24.5 L, MCHC 31.5 L, RDW 14.7, Plt Count 278, MPV 9.0, Neut % (Auto) 51.2, Lymph % (Auto) 38.5, [place] % (Auto) 7.1, Eos % (Auto) 2.3, Baso % (Auto) 0.9, Neut # (Auto) 5.6, Lymph # (Auto) 4.2, [place] # (Auto) 0.8, Eos # (Auto) 0.3, Baso # (Auto) 0.1 08/11/20 23:42: Sodium 138, Potassium 3.7, Chloride 103, Carbon Dioxide 25, Anion Gap 13.7, BUN 17, Creatinine 0.60, Estimated Creat Clear 120, Estimated GFR 124, Est GFR ( Amer) 150, Glucose 101 H, Calcium 9.8, Troponin I < 0.01, TSH 2.77, Thyroxine (T4) 8.5 08/11/20 23:45: SARS-CoV-2 IgG Ab (Rapid) Negative, SARS-CoV-2 IgM Ab (Rapid) Negative 08/11/20 23:54: Urine Color Yellow, Urine Appearance Clear, Urine pH 6.5, Ur Specific [place] 1.010, Urine Protein Negative, Urine Glucose (UA) Negative, Urine Ketones Negative, Urine Blood Negative, Urine Nitrate Negative, Urine Bilirubin Negative, Urine Urobilinogen 0.2, Ur Leukocyte Esterase Negative, Urine WBC Occasional, Urine Bacteria Trace 08/11/20 23:54: Urine HCG, Qual Negative 08/11/20 23:54: Urine Opiates Screen Negative, Urine Methadone Screen Negative, Ur Barbituates Screen Negative, Ur Phencyclidine Scrn Negative, Ur Amphetamines Screen Negative, U Benzodiazepines Scrn Negative, Urine Cocaine Screen Negative, U Marijuana (THC) Screen Negative Result diagrams: 08/11/20 23:42 08/11/20 23:42 Orders (Tests/Meds): ORDERS Category Date Time Status XR chest 2V Stat Exams 08/12/20 00:09 Taken Troponin I Q3H Lab 08/12/20 02:45 Ordered Troponin I Q3H Lab 08/12/20 05:45 Ordered - Radiology Data #1 Image(s): Chest Image Reviewed: Yes I reviewed the patient's radiology image Preliminary Findings: Abnormal - ECG Data Tracing #1 Normal Sinus Rhythm: Yes Ischemic changes: non-specific ST-T wave changes Medical Decision Narrative: possible covid and neg cardiac w/u Chest Pain HPI - General Chief Complaint: Chest Pain Stated Complaint: chest pain Time Seen by Provider: 08/11/20 23:45 Mode of Arrival: Family Vehicle Source of Information: Patient, Spouse, Medical Record Limitations: No Limitations Description of Symptoms (Recalled from ER Triage Doc. by RN): pt was here with her son today and swabbed for covid; arrives via private vehicle for complaints of cp today. states it radiates down left arm. has a cough. afebrile - History of Present Illness HPI narrative: ant chest pain with cough - has been exposed to covid-19 complaint: chest pain indicative of cardiac Onset (ago): hour(s) Duration: intermittent Activity at onset: during rest Pain location: [place]
[2020-08-12 01:40] VITALS: BP 109/55; PULSE 85; RESP 16; TEMP 36.6; O2SAT 99
== END 2020-08-12 01:40 | disposition home or self-care (01) ==
PROVIDERS: Emergency Provider Emergency Medicine
DX: R07.89 Other chest pain (principal); Z01.84 Encounter for antibody response examination; F41.8 Other specified anxiety disorders
CPT/HCPCS: 71046; 80048; 80305; 81001; 81025; 84436; 84443; 84484; 85025; 86328; 93005; 99283

== ENCOUNTER 2020-08-27 20:42 | Emergency (ER) | payer MEDICAID, SELFPAY ==
[2020-08-27 21:04] VITALS: BP 137/76; PULSE 82; RESP 17; TEMP 36.8; O2SAT 100; BMI 22.8
[2020-08-27 21:23] LABS: Microscopic, Urine URINE MICROSCOPIC (MICROSCOPIC)
[2020-08-27 21:25] LABS: Appearance,Urine CLEAR (Clear); Bilirubin,Urine Negative (Negative); Blood, Urine Negative (Negative); Color,Urine YELLOW (Yellow); Glucose,Urine (UA) Negative (Negative); Ketones,Urine Negative (Negative); Leukocyte Esterase,Urine Negative (Negative); Nitrate,Urine Negative (Negative); Protein,Urine Negative (Negative); Specific Gravity, Urine 1.025 (1.005-1.030); Urobilinogen,Urine 0.2 EU/dl (0.2)
[2020-08-27 21:30] LABS: Urine Pregnancy, HCG Qual. Negative (Negative)
--- NOTE | 2020-08-27 21:34 | HMH.EDGENADL ---
ED Disposition Clinical Impression: Nausea & vomiting Qualifiers: Vomiting type: unspecified Vomiting Intractability: unspecified Qualified Code(s): R11.2 - Nausea with vomiting, unspecified Disposition: Home, Self-Care Condition on Discharge: Good Additional Instructions: Take Zofran as prescribed. Use Tylenol/ibuprofen for low-grade fever. Drink plenty of clear fluids. Please follow-up with your doctor for recheck. If any weight loss, night sweats, decreased p.o. intake/concern for dehydration, intractable nausea/vomiting, high fever/chills, or other new concerning symptoms please report back to our emergency department. Prescriptions: Ondansetron [Zofran 4mg ODT] 4 mg PO TIDP PRN #12 tab PRN Reason: Nausea Prescription Printed Referrals: PCP,No [Primary Care Provider] - - Critical Care Critical Care Time: No Attestation: On 08/27/20, the high probability of a clinically significant, sudden or life threatening deterioration of the following system(s) required my full and direct attention, intervention and personal management. The time I documented below is in addition to time spent performing reported procedures but includes the following listed in this critical care notation. Medical Decision Making - Medical Records Medical records reviewed: Yes: I reviewed the patient's medical records. - Adeel Inquiry Pt receiving controlled substance: No Vital Signs: 08/27/20 21:04 08/28/20 00:35 Temperature 98.3 F 98.1 F Temperature Source Oral Oral Pulse Rate 81 Pulse Rate [Right Brachial] 82 Respiratory Rate 17 16 Blood Pressure 138/72 Blood Pressure [Right Arm] 137/76 Blood Pressure Mean [Right Arm] 96 Blood Pressure Source Automatic Cuff Blood Pressure Source [Right Arm] Automatic Cuff Blood Pressure Position Sitting Blood Pressure Position [Right Arm] Sitting 02 Sat by Pulse Oximetry 100 Oxygen Delivery Method Room Air Room Air - Lab Data Lab Results 08/27/20 21:16: Urine Color Yellow, Urine Appearance Clear, Urine pH 6.0, Ur Specific [place] 1.025, Urine Protein Negative, Urine Glucose (UA) Negative, Urine Ketones Negative, Urine Blood Negative, Urine Nitrate Negative, Urine Bilirubin Negative, Urine Urobilinogen 0.2, Ur Leukocyte Esterase Negative, Urine WBC 3-5, Ur Squamous Epith Cells 3-5 08/27/20 21:16: Urine HCG, Qual Negative Orders (Tests/Meds): ED MEDICATIONS Discontinued Medications Generic Name Dose Route Start Last Admin Trade Name Emily PRN Reason Stop Dose Admin Ondansetron HCl 4 mg 08/28/20 00:11 08/28/20 00:13 Ondansetron 4mg Odt SL 08/28/20 00:12 4 mg ONCE ONE Administration ORDERS Category Date Time Status Covid-19 Nasal PCR ([facility]) Routine Lab 08/28/20 00:35 Received Medical Decision Narrative: Presents due to concern for subjective fever at home. On arrival patient's temperature is 98.3 degrees. She has normal vital signs. I did review her chart and she was seen about 10 days ago in the emergency department with normal metabolic and heme panel. I did consider heme/oncologic issues causing her symptoms but based on recent labs I do not believe they are entirely indicated today based on patient's well-appearing presentation. Urinalysis obtained demonstrates no signs of cystitis. On further talks, patient is most concerned that she may have Covid due to exposure to her son. Covid swab will be obtained. Patient will isolate as that she can until results are known. Patient verbalizes understanding and agrees. She will immediate return if any generalized malaise, easy bleeding, night sweats, unintentional weight loss, unexplained fevers or other new concerning symptoms. Otherwise she will follow up with her primary care doctor within several days for recheck. Assessment: Subjective fever Coronavirus exposure Disposition: Home with Covid swab pending General Adult HPI - General Chief complaint: PAIN Stated complaint: janine
[2020-08-28 00:35] VITALS: BP 138/72; PULSE 81; RESP 16; TEMP 36.7; O2SAT 98
== END 2020-08-28 00:43 | disposition home or self-care (01) ==
PROVIDERS: Emergency Provider Emergency Medicine
DX: Z20.822 Contact with and (suspected) exposure to COVID-19 (principal); R11.2 Nausea with vomiting, unspecified; R50.9 Fever, unspecified; F41.9 Anxiety disorder, unspecified
CPT/HCPCS: 81001; 81025; 99282; U0003